=== PATIENT | male | born 1980 | race Caucasian/White ===

== ENCOUNTER 2023-02-07 12:25 | Emergency (ER) | payer SELFPAY | END 2023-02-07 13:48 | LOC: MW.ED 12:25 | DX: I10 Essential (primary) hypertension (principal); Z02.89 Encounter for other administrative examinations; F17.210 Nicotine dependence, cigarettes, uncomplicated; Z79.899 Other long term (current) drug therapy | CPT/HCPCS: 99283 ==

== ENCOUNTER 2023-09-27 23:07 | Emergency (ER) | payer SELFPAY ==
[2023-09-28] MEDS: Lactated Ringers 1,000 ML IV ONE ×2 (01:29→02:53)
[2023-09-28] MEDS: Sodium Chloride 0.9% 2.5 ML Syringe FLUSH PRN (01:30)
[2023-09-28] MEDS: Sodium Chloride 0.9% 10 ML Syringe FLUSH PRN (01:30)
[2023-09-28] MEDS: Ondansetron 4 MG/2 ML SDV IVPUSH ONE (01:30)
[2023-09-28 01:33] LABS: HEMATOCRIT 51.1 % (42.0-52.0); HEMOGLOBIN 17.1 g/dL (14.0-18.0); MEAN CORPUSCULAR HEMOGLOBIN 30.3 pg (28.0-32.0); MEAN CORPUSCULAR HGB CONC 33.5 g/dL (32.0-36.0); MEAN CORPUSCULAR VOLUME 90.4 fL (83.0-99.0); PLATELET COUNT,PLT 290 K/uL (150-400); RED BLOOD CELL COUNT 5.65 M/uL (4.52-5.90); WHITE BLOOD CELL COUNT,WBC 15.61 K/uL (3.9-11.3)
[2023-09-28] MEDS: Etomidate 2 MG/ML 20 ML SDV IVPUSH ONE (01:57)
[2023-09-28 02:07] LABS: A/G RATIO 1.2 (0.9-1.6); ALANINE AMINOTRANSFERASE,ALT 16 IU/L (14-63); ALBUMIN 4.5 g/dL (3.4-5.0); ALKALINE PHOSPHATASE 115 U/L (46-116); ASPARTATE AMNIOTRANSFERASE,AST 20 IU/L (15-37); BILIRUBIN TOTAL 1.4 mg/dL (0.2-1.0); BLOOD UREA NITROGEN,BUN 23 mg/dL (7.0-18.0); CALCIUM 9.9 mg/dL (8.5-10.1); CARBON DIOXIDE,CO2 23.3 mmol/L (21.0-32.0); CHLORIDE,CL 103 mmol/L (98-107); CREATININE 2.5 mg/dL (0.8-1.3); EST CRCL DRUG DOSING (CG) 41.42 mL/min; GLUCOSE RANDOM 144 mg/dL (74-106); LIPASE 15 U/L (16-77); MAGNESIUM 2.3 mg/dL (1.8-2.4); POTASSIUM,K 4.5 mmol/L (3.5-5.1); PROTEIN TOTAL,TP 8.4 g/dL (6.4-8.2); SALICYLATE 1.5 mg/dL (0.0-20.0); SODIUM,NA 141 mmol/L (136-148)
[2023-09-28] MEDS ORDERED: Magnesium Sulfate (4.06 MEQ/ML) 5 GM/10 ML SDV IV ONE (02:08)
[2023-09-28 02:09] LABS: LYMPHOCYTES ABSOLUTE MAN 2.03 K/uL (1.00-4.80); LYMPHOCYTES PERCENT MAN 13 % (24-44); MONOCYTES ABSOLUTE MAN 1.56 K/uL (0.00-0.80); MONOCYTES PERCENT MAN 10 % (0-8); SEG NEUTROPHILS ABSOLUTE MAN 12.02 K/uL (1.80-7.70); SEG NEUTROPHILS PERCENT MAN 77 % (41-71)
[2023-09-28] MEDS: Magnesium Sulfate/Water 50 ML ONE (02:16)
[2023-09-28] MEDS: Magnesium Sulfate/Water 2 GM in Premix Bag 1 BAG IV ONE (02:21)
[2023-09-28 02:25] LABS: ESTIMATED GFR 32 mL/min (>60)
[2023-09-28] MEDS: Heparin Sodium 5,000 Units/ML Vial IVPUSH ONE ×2 (02:35→02:41)
[2023-09-28] MEDS: Heparin Sodium/0.45% NaCl 500 ML IV SCH (02:36)
[2023-09-28] MEDS: Amiodarone In Dextrose,Iso-Osm 150 MG in Premix Bag 1 BAG IV ONE (02:48)
[2023-09-28] MEDS: Aspirin 81 MG Tab.Chew PO ONE (02:52)
[2023-09-28 02:59] LABS: ACETAMINOPHEN <2.0 ug/mL; ETHANOL BLOOD MEDICAL <3 mg/dL
[2023-09-28 04:01] LABS: AMPHETAMINES SCREEN, URINE PRESUMPTIVE POSITIVE (CUTOFF=500); BARBITURATE SCREEN,URINE NEGATIVE (CUTOFF=200); BENZODIAZEPINES SCREEN,URINE NEGATIVE (CUTOFF=150); BUPRENORPHINE SCREEN,URINE NEGATIVE (CUTOFF=10); METHADONE SCREEN, URINE NEGATIVE (CUTOFF=200); METHAMPHETAMINES SCREEN, URINE PRESUMPTIVE POSITIVE (CUTOFF=500); OXYCODONE SCREEN,URINE NEGATIVE (CUT0FF=100); PCP SCREEN,URINE NEGATIVE (CUTOFF=25); THC SCREEN,URINE 20 NG/ML NEGATIVE (CUTOFF=50)
[2023-09-28] MEDS: Nicotine 21 MG/24 Hr Patch TRDERM ONE (04:17)
== END 2023-09-28 04:48 ==
LOC: MW.ED 23:07
DX: I21.4 Non-ST elevation (NSTEMI) myocardial infarction (principal); N17.9 Acute kidney failure, unspecified; I47.20 Ventricular tachycardia, unspecified; Z79.899 Other long term (current) drug therapy
CPT/HCPCS: 36415; 71045; 80053; 80143; 80179; 80305; 80307; 83690; 83735; 84484; 85025; 85730; 92960; 93005; 96361; 96365; 96366; 96368; 96375; 96376; 99152; 99285; A9270; J0282; J1644; J2405; J3475; J3490; J7120; 93010

== ENCOUNTER 2024-01-11 19:46 | Emergency (ER) | payer SELFPAY ==
[2024-01-11] MEDS: Lisinopril 10 MG Tab PO ONE (20:50)
== END 2024-01-11 20:55 ==
LOC: MW.ED 19:46
DX: Z02.89 Encounter for other administrative examinations (principal); Z76.0 Encounter for issue of repeat prescription; I10 Essential (primary) hypertension
CPT/HCPCS: 99283; A9270

== ENCOUNTER 2024-02-17 14:03 | Emergency (ER) | payer MEDICAID ==
[2024-02-17] MEDS: Hydrochlorothiazide 25 MG Tab PO ONE (14:40)
== END 2024-02-17 14:50 | disposition home or self-care (01) ==
LOC: MW.ED 14:03
DX: I1A.0 Resistant hypertension (principal); F17.210 Nicotine dependence, cigarettes, uncomplicated; Z79.899 Other long term (current) drug therapy
CPT/HCPCS: 99283; A9270

== ENCOUNTER 2024-04-26 17:17 | Emergency (ER) | payer MEDICAID, OTHER ==
[2024-04-26] MEDS: Hydrochlorothiazide/Losartan 12.5-50 mg Tab PO STA (19:05)
[2024-04-27] MEDS ORDERED: Hydrochlorothiazide/Losartan 12.5-50 mg Tab PO SCH (09:00)
== END 2024-04-26 19:08 ==
LOC: MW.ED 17:17
DX: Z02.89 Encounter for other administrative examinations (principal); I1A.0 Resistant hypertension; Z79.899 Other long term (current) drug therapy; I10 Essential (primary) hypertension; F17.210 Nicotine dependence, cigarettes, uncomplicated
CPT/HCPCS: 99283; A9270; 99282

== ENCOUNTER 2024-11-06 06:13 | Emergency (ER) | payer MEDICAID, OTHER ==
[2024-11-06] MEDS ORDERED: Sodium Chloride 0.9% 10 ML Syringe FLUSH PRN (06:22)
[2024-11-06] MEDS ORDERED: Sodium Chloride 0.9% 2.5 ML Syringe FLUSH PRN (06:22)
[2024-11-06 06:33] LABS: BASOPHILS ABSOLUTE AUTO 0.05 K/uL (0.00-0.20); BASOPHILS PERCENT AUTO 0.5 % (0.0-1.0); EOSINOPHILS ABSOLUTE AUTO 0.12 K/uL (0.00-0.45); EOSINOPHILS PERCENT AUTO 1.2 % (0.0-6.0); IMMATURE GRAN ABSOLUTE AUTO 0.03 K/uL (0.00-0.05); IMMATURE GRAN PERCENT AUTO 0.3 % (0.0-0.4); LYMPHOCYTES ABSOLUTE AUTO 3.04 K/uL (1.00-4.80); LYMPHOCYTES PERCENT AUTO 30.0 % (24.0-44.0); MEAN PLATELET VOLUME 9.6 fL (9.4-12.4); MONOCYTES ABSOLUTE AUTO 0.92 K/uL (0.00-0.80); MONOCYTES PERCENT AUTO 9.1 % (0.0-8.0); NEUTROPHILS ABSOLUTE AUTO 5.96 K/uL (1.80-7.70); NEUTROPHILS PERCENT AUTO 58.9 % (41.0-71.0); NRBC ABSOLUTE 0.00 K/uL (0.00-0.02); NRBC PERCENT 0.0 /100WBC (0.0-0.2); PLATELET COUNT,PLT 299 K/uL (150-400); RED BLOOD CELL COUNT 5.65 M/uL (4.52-5.90); WHITE BLOOD CELL COUNT,WBC 10.12 K/uL (3.9-11.3)
[2024-11-06] MEDS: Amiodarone 150 MG/100 ML 150 MG in Premix Bag 1 BAG IV ONE (06:44)
[2024-11-06] MEDS: Amiodarone 360 MG/200 ML 360 MG/200 ML BAG IV ONE (06:45)
[2024-11-06] MEDS: Etomidate 2 MG/ML 20 ML SDV IVPUSH ONE (06:46)
[2024-11-06] MEDS: Ondansetron 4 MG/2 ML SDV IVPUSH ONE (07:01)
[2024-11-06 07:06] LABS: A/G RATIO 1.0 (0.9-1.6); ALANINE AMINOTRANSFERASE,ALT 34.0 IU/L (14-63); ASPARTATE AMNIOTRANSFERASE,AST 17.0 IU/L (15-37); BILIRUBIN TOTAL 0.5 mg/dL (0.2-1.0); BLOOD UREA NITROGEN,BUN 28.0 mg/dL (7.0-18.0); CARBON DIOXIDE,CO2 30.7 mmol/L (21.0-32.0); CHLORIDE,CL 99.0 mmol/L (98-107); CREATININE 1.7 mg/dL (0.8-1.3); EST CRCL DRUG DOSING (CG) 60.29 mL/min; ESTIMATED GFR 51.0 mL/min (>60); GLUCOSE RANDOM 142.0 mg/dL (74-106); POTASSIUM,K 4.0 mmol/L (3.5-5.1); PRO B-TYPE NATRIUR PEPT,BNPPRO 491.0 pg/mL (0-125); PROTEIN TOTAL,TP 8.4 g/dL (6.4-8.2); SODIUM,NA 140.0 mmol/L (136-148)
[2024-11-06 08:33] LABS: BUPRENORPHINE SCREEN,URINE NEGATIVE (CUTOFF=10); METHADONE SCREEN, URINE NEGATIVE (CUTOFF=200); OXYCODONE SCREEN,URINE NEGATIVE (CUT0FF=100); PCP SCREEN,URINE NEGATIVE (CUTOFF=25); THC SCREEN,URINE 20 NG/ML NEGATIVE (CUTOFF=50)
[2024-11-06 09:01] LABS: AMPHETAMINES SCREEN, URINE PRESUMPTIVE POSITIVE (CUTOFF=500); METHAMPHETAMINES SCREEN, URINE PRESUMPTIVE POSITIVE (CUTOFF=500)
== END 2024-11-06 11:26 | disposition left against medical advice (07) ==
LOC: MW.ED 06:13
DX: I47.20 Ventricular tachycardia, unspecified (principal); I49.3 Ventricular premature depolarization; I49.1 Atrial premature depolarization; F15.10 Other stimulant abuse, uncomplicated; R79.89 Other specified abnormal findings of blood chemistry; I10 Essential (primary) hypertension; Z79.899 Other long term (current) drug therapy
CPT/HCPCS: 36415; 71045; 80053; 80305; 80307; 83735; 83880; 84484; 85025; 92960; 93005; 96365; 99291; J0283; J3490; J7030; 93010